=== PATIENT | male | born 1955 | race Two or more races ===

== ENCOUNTER 2018-03-13 07:52 | Outpatient (CLI) | payer OTHER ==
[~2018-03-13 07:52] MED LIST: BACLOFEN10 MG PO
== END 2018-03-13 08:01 | disposition home or self-care (01) ==
LOC: NUCLEAR 07:52
DX: I20.0 Unstable angina (principal); I25.10 Atherosclerotic heart disease of native coronary artery without angina pectoris; E78.2 Mixed hyperlipidemia; I11.9 Hypertensive heart disease without heart failure
CPT/HCPCS: 78452; 93017; A9500; 93306

== ENCOUNTER 2022-11-29 10:23 | Outpatient (CLI) | payer OTHER | END 2022-11-29 10:28 | disposition home or self-care (01) | LOC: SONOGRAMA 10:23 | PROVIDERS: ATTEND Physical Medicine & Rehabilitation | DX: M75.112 Incomplete rotator cuff tear or rupture of left shoulder, not specified as traumatic (principal) ==